=== PATIENT | male | born 1980 | race Two or more races ===

== ENCOUNTER → 2025-02-08 | Outpatient (BNVA) | payer MEDICAID, SELFPAY | END | disposition home or self-care (01) | PROVIDERS: PCP Nurse Practitioner Family; Referring Provider Nurse Practitioner Family; Visit Provider Nurse Practitioner Family | DX: E55.9 Vitamin D deficiency, unspecified (principal); R79.89 Other specified abnormal findings of blood chemistry; K21.9 Gastro-esophageal reflux disease without esophagitis; F10.10 Alcohol abuse, uncomplicated; Z13.89 Encounter for screening for other disorder; Z11.3 Encounter for screening for infections with a predominantly sexual mode of transmission; Z28.21 Immunization not carried out because of patient refusal; Z13.1 Encounter for screening for diabetes mellitus | CPT/HCPCS: 99214 ==

== ENCOUNTER → 2025-02-24 | Outpatient (BNVA) | payer MEDICAID, SELFPAY | END | disposition home or self-care (01) | PROVIDERS: PCP Nurse Practitioner Primary Care; Referring Provider Nurse Practitioner Primary Care; Visit Provider Nurse Practitioner Primary Care | DX: R94.5 Abnormal results of liver function studies (principal); R73.03 Prediabetes | CPT/HCPCS: 99212; G0463 ==

== ENCOUNTER 2025-03-14 08:02 | Emergency (ER) | payer MEDICAID, SELFPAY ==
[2025-03-14 08:04] VITALS: BMI 29.0
[2025-03-14 08:12] VITALS: BP 139/96; PULSE 96; RESP 18; TEMP 37; O2SAT 98
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
[2025-03-14 10:01] VITALS: BP 123/62; PULSE 79; RESP 16; TEMP 36.5; O2SAT 100
== END 2025-03-14 10:01 | disposition home or self-care (01) ==
PROVIDERS: Emergency Provider Family Medicine
DX: S13.4XXA Sprain of ligaments of cervical spine, initial encounter (principal); V49.9XXA Car occupant (driver) (passenger) injured in unspecified traffic accident, initial encounter
CPT/HCPCS: 72125; 99283

== ENCOUNTER → 2025-05-16 | Outpatient (BNVA) | payer MEDICAID, SELFPAY | END | disposition home or self-care (01) | PROVIDERS: PCP Nurse Practitioner Primary Care; Referring Provider Nurse Practitioner Primary Care; Visit Provider Nurse Practitioner Primary Care | DX: Z02.1 Encounter for pre-employment examination (principal); F10.10 Alcohol abuse, uncomplicated; Z28.21 Immunization not carried out because of patient refusal; Z91.199 Patient's noncompliance with other medical treatment and regimen due to unspecified reason | CPT/HCPCS: 99214 ==

== ENCOUNTER → 2025-05-23 | Outpatient (BNVA) | payer MEDICAID, SELFPAY | END | disposition home or self-care (01) | PROVIDERS: PCP Nurse Practitioner Family; Referring Provider Nurse Practitioner Family; Visit Provider Nurse Practitioner Family | DX: Z71.2 Person consulting for explanation of examination or test findings (principal); Z13.89 Encounter for screening for other disorder; Z91.199 Patient's noncompliance with other medical treatment and regimen due to unspecified reason | CPT/HCPCS: 99213 ==

== ENCOUNTER → 2025-07-10 | Outpatient (BNVA) | payer MEDICAID, SELFPAY | END | disposition home or self-care (01) | PROVIDERS: PCP Nurse Practitioner Primary Care; Referring Provider Nurse Practitioner Primary Care; Visit Provider Nurse Practitioner Primary Care | DX: M51.369 Other intervertebral disc degeneration, lumbar region without mention of lumbar back pain or lower extremity pain (principal); Z91.199 Patient's noncompliance with other medical treatment and regimen due to unspecified reason | CPT/HCPCS: 99213 ==